=== PATIENT | female | born 1935 | race Caucasian/White ===

== ENCOUNTER → 2017-09-27 | Outpatient (CLI) | payer OTHER ==
[~2017-09-27] MED LIST: ACET500 PO; ASPI81CH PO; ASPI81EC PO; Afeditab Cr30 MG PO; ENOX80I SC; FURO40 PO; MELO7.5 PO; METO2.5 PO; OMEP20ER PO; POTCHL10ER PO; TIMO.5OPSO RIGHTEYE; WARF5 PO
== END | disposition home or self-care (01) ==
LOC: PLD 14:45 → LAB SHORT 14:45
DX: L57.0 Actinic keratosis (principal)
CPT/HCPCS: 88305

== ENCOUNTER 2017-10-15 07:34 | Emergency (ER) | payer OTHER ==
[~2017-10-15] VITALS: Ht 157.5 cm; Wt 77.1 kg
[2017-10-15] MEDS ORDERED: POTCHL10ER PO (07:57)
[2017-10-15] MEDS ORDERED: HYDCHL25 PO (07:57)
[2017-10-15] MEDS ORDERED: METDOP250 PO (08:00)
[2017-10-15] MEDS ORDERED: Combigan Eye Dro5 ML BOTHEYES (08:01)
[2017-10-15] MEDS ORDERED: Travatan Z5 ML BOTHEYES (08:05)
[2017-10-15 08:19] LABS: Performing Lab VAMCL; Test Name PT PTT
[2017-10-15] MEDS ORDERED: Lasix20 MG PO (08:35)
== END 2017-10-15 08:50 | disposition home or self-care (01) ==
LOC: ER 07:34
PROVIDERS: Emergency Medicine
DX: R60.0 Localized edema (principal); I10 Essential (primary) hypertension; Z88.5 Allergy status to narcotic agent; Z79.01 Long term (current) use of anticoagulants; Z79.899 Other long term (current) drug therapy
CPT/HCPCS: 36415; 85610; 93971; 99284

== ENCOUNTER 2018-05-03 07:13 | Emergency (ER) | payer OTHER ==
[~2018-05-03] VITALS: Ht 157.5 cm; Wt 77.1 kg
[~2018-05-03 07:13] MED LIST changes: +Combigan Eye Dro5 ML BOTHEYES; +HYDCHL25 PO; +Lasix20 MG PO; +METDOP250 PO; +Travatan Z5 ML BOTHEYES
[2018-05-03] MEDS ORDERED: FURO40 PO (07:33)
[2018-05-03] MEDS ORDERED: Aspir 8181 MG PO (07:34)
[2018-05-03] MEDS ORDERED: Hair, Skin & N1 EACH PO (07:34)
[2018-05-03] MEDS ORDERED: Triamcinolone A15 G3 TOP (08:01)
== END 2018-05-03 08:08 | disposition home or self-care (01) ==
LOC: ER 07:13
DX: L25.9 Unspecified contact dermatitis, unspecified cause (principal); Z79.899 Other long term (current) drug therapy; Z79.01 Long term (current) use of anticoagulants; Z79.82 Long term (current) use of aspirin; I10 Essential (primary) hypertension
CPT/HCPCS: 99282

== ENCOUNTER 2018-06-27 12:56 | Emergency (ER) | payer OTHER ==
[~2018-06-27] VITALS: Ht 157.5 cm; Wt 74.8 kg
[~2018-06-27 12:56] MED LIST changes: +Aspir 8181 MG PO; +Hair, Skin & N1 EACH PO; +Triamcinolone A15 G3 TOP
[2018-06-27] MEDS ORDERED: IRBE150 PO (13:52)
== END 2018-06-27 14:42 | disposition home or self-care (01) ==
LOC: ER 12:56
DX: M25.561 Pain in right knee (principal); Z79.899 Other long term (current) drug therapy; Z79.82 Long term (current) use of aspirin; Z79.01 Long term (current) use of anticoagulants; I10 Essential (primary) hypertension
CPT/HCPCS: 73562-RT; 99283-25

== ENCOUNTER → 2020-03-24 | Outpatient (CLI) | payer OTHER ==
[~2020-03-24] MED LIST changes: +DOXYCYCLINE HY100 M1 PO; +IRBE150 PO; +Keflex500 MG PO
== END | disposition home or self-care (01) ==
LOC: PLD 07:47 → LAB SHORT 07:47
DX: L57.0 Actinic keratosis (principal)
CPT/HCPCS: 88305

== ENCOUNTER → 2022-12-28 | Outpatient (CLI) | payer OTHER ==
[2022-12-28 13:10] LABS: International Normalized Ratio 1.2; Prothrombin Time Results 12.5 Sec (9.7-11.5)
[2022-12-28 13:55] LABS: Albumin, Blood 3.9 g/dL (3.4-5.0); Albumin/Globulin Ratio 1.4 (0.8-1.8); Bilirubin, Total 0.6 mg/dL (0.1-1.0); Calcium, Blood 9.2 mg/dL (8.5-10.1); Globulin, Blood 2.8 g/dL (2.2-4.0); Potassium, Blood 4.5 mmol/L (3.5-5.5); Total Protein, Blood 6.7 g/dL (6.4-8.2)
== END | disposition home or self-care (01) ==
LOC: LAB 11:45 → LAB SHORT 11:45
PROVIDERS: Physician Assistant
DX: Z79.01 Long term (current) use of anticoagulants (principal); Z51.81 Encounter for therapeutic drug level monitoring; I10 Essential (primary) hypertension; Z86.711 Personal history of pulmonary embolism; Z79.899 Other long term (current) drug therapy
CPT/HCPCS: 80053; 82607; 82746; 85610

== ENCOUNTER → 2023-01-01 | Outpatient (CLI) | payer OTHER ==
[2023-01-01 13:46] LABS: International Normalized Ratio 1.41; Prothrombin Time Results 14.5 Sec (9.7-11.5)
== END | disposition home or self-care (01) ==
LOC: LAB SHORT 12:31 → LAB 12:31
PROVIDERS: Physician Assistant
DX: Z51.81 Encounter for therapeutic drug level monitoring (principal); Z79.01 Long term (current) use of anticoagulants; Z86.711 Personal history of pulmonary embolism
CPT/HCPCS: 85610